=== PATIENT | female | born 2005 | race African-American/Black ===

== ENCOUNTER 2025-09-08 12:52 | Emergency (ER) | payer BC ==
[2025-09-08] MEDS ORDERED: Magnesium 2 GM/50 ML BAG (IN WATER) ONE (14:14)
[2025-09-08] MEDS ORDERED: Dexamethasone 10 MG/ML VIAL ONE (14:14)
== END 2025-09-08 16:03 | disposition home or self-care (01) ==
LOC: CSHERS 12:52
DX: J45.909 Unspecified asthma, uncomplicated (principal); F17.210 Nicotine dependence, cigarettes, uncomplicated
CPT/HCPCS: 93005; 93010; 94640; 96365; 96375; J1100; J3475